=== PATIENT | female | born 1985 | race Two or more races ===

== ENCOUNTER 2017-08-18 10:23 | Emergency (ER) | payer OTHER ==
[~2017-08-18] VITALS: Ht 170.2 cm; Wt 55.8 kg
== END 2017-08-18 13:15 | disposition home or self-care (01) ==
LOC: ER 10:23
DX: O20.8 Other hemorrhage in early pregnancy (principal); Z34.81 Encounter for supervision of other normal pregnancy, first trimester

== ENCOUNTER 2017-09-07 02:27 | Inpatient (IN) | payer OTHER ==
[~2017-09-07] VITALS: Ht 170.2 cm; Wt 51.7 kg
[2017-09-09] MEDS ORDERED: Mylicon 125MG PO (16:23)
[2017-09-09] MEDS ORDERED: FAMOTIDINE20 MG PO (16:23)
[2017-09-09] MEDS ORDERED: ACETAMINOPHEN500 M1 PO (16:23)
[2017-09-09] MEDS ORDERED: CEFADROXIL500 MG PO (16:24)
[2017-09-09] MEDS ORDERED: GAS RELIEF 8080 MG PO (16:25)
== END 2017-09-09 16:42 | disposition home or self-care (01) | DRG 777 ==
LOC: ER 02:27 → OB/GYN 13:38 → SEC-K 13:38 → O/R 16:03 → OB/GYN 16:33
PROVIDERS: Obstetrics & Gynecology
PROC: 10T20ZZ Resection of Products of Conception, Ectopic, Open Approach (ICD-10-PCS; 2017-09-07)
PROC: BU4CZZZ Ultrasonography of Uterus and Ovaries (ICD-10-PCS; 2017-09-07)
PROC: 0UT50ZZ Resection of Right Fallopian Tube, Open Approach (ICD-10-PCS; principal; 2017-09-07 16:15)
DX: O00.101 Right tubal pregnancy without intrauterine pregnancy (principal); K66.1 Hemoperitoneum

== ENCOUNTER 2020-03-25 16:54 | Emergency (ER) | payer OTHER ==
[~2020-03-25] VITALS: Ht 170.2 cm; Wt 53.5 kg
[~2020-03-25 16:54] MED LIST: ACETAMINOPHEN500 M1 PO; CEFADROXIL500 MG PO; FAMOTIDINE20 MG PO; GAS RELIEF 8080 MG PO; Mylicon 125MG PO
== END 2020-03-25 22:29 | disposition home or self-care (01) ==
LOC: ER 16:54
DX: N39.0 Urinary tract infection, site not specified (principal); R10.2 Pelvic and perineal pain

== ENCOUNTER 2021-11-11 10:41 | Emergency (ER) | payer OTHER ==
[~2021-11-11] VITALS: Ht 170.2 cm; Wt 52.6 kg
[2021-11-11] MEDS ORDERED: CIPRO500 MG PO (16:06)
== END 2021-11-11 16:19 ==
LOC: ER 10:41
DX: N39.0 Urinary tract infection, site not specified (principal); A49.3 Mycoplasma infection, unspecified site; Z20.822 Contact with and (suspected) exposure to COVID-19

== ENCOUNTER 2024-03-05 13:45 | Emergency (ER) | payer OTHER ==
[~2024-03-05] VITALS: Ht 170.2 cm; Wt 46.7 kg
[~2024-03-05 13:45] MED LIST changes: +CIPRO500 MG PO
[2024-03-05 16:11] LABS: HEMOGLOBIN 12.9 g/dL (12.0-15.00); MEAN CELL VOLUME 90.5 fL (80.00-100.00); MEAN CORPUSCULAR HEMOGLOBIN 30.8 pg (27.00-32.0); PLATELET COUNT 294 K/uL (150-450); RED CELL DISTRIBUTION WIDTH 13.9 % (11.5-14.5)
[2024-03-05 16:33] LABS: INR 1.01
[2024-03-05 17:22] LABS: ALBUMIN 3.6 gm/dL (3.4-5.0); BILIRUBIN TOTAL 0.72 mg/dL (0.3-1.2); CALCIUM 8.9 mg/dL (8.5-10.1); CREATININE SERUM 0.67 mg/dL (0.55-1.02); GFR 99.04; POTASSIUM 3.67 mEq/L (3.5-5.1); TOTAL PROTEIN 7.6 gm/dL (6.4-8.2)
== END 2024-03-05 18:58 | disposition home or self-care (01) ==
LOC: ER 13:46
PROVIDERS: Nurse Practitioner Family
DX: N92.0 Excessive and frequent menstruation with regular cycle (principal)